=== PATIENT | female | born 1970 | race Caucasian/White ===

== ENCOUNTER 2017-06-03 16:15 | Emergency (ER) | payer OTHER ==
[~2017-06-03] VITALS: Ht 157.5 cm; Wt 64.9 kg
[~2017-06-03 16:15] MED LIST: Bactrim Ds Tab1 EACH PO; CEPH500 PO; CIPR500 PO; Cleocin HCl300 MG PO; IBUP600 PO; Norco 5-325 Ta1 EACH PO; OXYACE5T PO; PHENA100 PO; PROM25 PO; SULTRIDS PO; Ultram50 MG PO
[2017-06-04] MEDS ORDERED: Doxycycline Hy100 MG PO (21:47)
== END 2017-06-03 19:33 | disposition left against medical advice (07) ==
LOC: ER 16:15
DX: N89.8 Other specified noninflammatory disorders of vagina (principal); Z53.21 Procedure and treatment not carried out due to patient leaving prior to being seen by health care provider
CPT/HCPCS: 99282

== ENCOUNTER 2017-06-04 15:00 | Emergency (ER) | payer OTHER ==
[~2017-06-04] VITALS: Ht 157.5 cm; Wt 66.7 kg
[2017-06-04 18:30] LABS: Source, Urine Clean Catch
[2017-06-04 18:31] LABS: Bilirubin, Urine Neg (Neg); Blood, Urine 1+ (Neg); Glucose Qualitative, Urine Neg (Neg); Ketones, Urine Neg (Neg); Leukocyte Esterase, Urine 3+ (Neg); Nitrite, Urine Neg (Neg); Protein, Urine Neg (Neg); Specific Gravity, Urine 1.015 (1.003-1.022); Urobilinogen, Urine 3+ (Normal)
[2017-06-04 18:49] LABS: Appearance, Urine Clear (Clear); Color, Urine Yellow (P-Yellow)
[2017-06-04 18:50] LABS: Bacteria Mod /hpf; Squamous Epithelial Cells Mod /hpf (Few); White Blood Cells, Urine 50-100 /hpf (0-5)
[2017-06-04] MEDS ORDERED: Doxycycline Hy100 MG PO (21:47)
[2017-06-04 21:52] LABS: Candida species (DNA Probe) Negative (NEGATIVE); G. vaginalis (DNA Probe) Negative (NEGATIVE); T. vaginalis (DNA Probe) Positive (NEGATIVE)
[2017-06-06 14:38] LABS: Source Cervix
== END 2017-06-04 21:56 | disposition home or self-care (01) ==
LOC: ER 15:00
PROVIDERS: Emergency Medicine; Physician Assistant
DX: N73.9 Female pelvic inflammatory disease, unspecified (principal); A59.01 Trichomonal vulvovaginitis; Z79.2 Long term (current) use of antibiotics; Z88.5 Allergy status to narcotic agent; F17.210 Nicotine dependence, cigarettes, uncomplicated
CPT/HCPCS: 81001; 81025; 87086; 87480; 87510; 87591; 87660; 96372; 99284; J0696